=== PATIENT | male | born 1985 | race Hispanic/Latino ===

== ENCOUNTER 2022-07-15 11:40 | Emergency (ER) | payer OTHER | END 2022-07-15 15:08 | disposition home or self-care (01) | LOC: MW.ED 11:40 | DX: K04.7 Periapical abscess without sinus (principal) | CPT/HCPCS: 99282 ==

== ENCOUNTER 2022-12-08 02:19 | Emergency (ER) | payer SELFPAY ==
[2022-12-08] MEDS ORDERED: Penicillin V Potassium 500 MG Tab PO STA (03:04)
== END 2022-12-08 03:11 | disposition home or self-care (01) ==
LOC: MW.ED 02:19
DX: K04.7 Periapical abscess without sinus (principal)
CPT/HCPCS: 99282; A9270; 99283

== ENCOUNTER 2023-05-28 02:42 | Emergency (ER) | payer OTHER ==
[2023-05-28] MEDS ORDERED: Amoxicillin/Clavulanate K 875-125 MG Tab PO ONE (02:58)
== END 2023-05-28 03:37 | disposition home or self-care (01) ==
LOC: MW.ED 02:42
DX: K08.89 Other specified disorders of teeth and supporting structures (principal); R22.0 Localized swelling, mass and lump, head; Z88.0 Allergy status to penicillin
CPT/HCPCS: 99283; A9270

== ENCOUNTER 2024-04-27 23:16 | Emergency (ER) | payer OTHER ==
[2024-04-27] MEDS ORDERED: Naloxone 0.4 MG/ML SDV IVPUSH PRN (23:19)
[2024-04-27] MEDS: HYDROmorphone 1 MG/ML Syringe IVPUSH ONE (23:22)
[2024-04-27] MEDS: Tetracaine HCl/PF 0.5% 4 ML Bottle EYEBOTH ONE (23:25)
[2024-04-28] MEDS: LORazepam 2 MG/ML SDV IVPUSH ONE (00:01)
[2024-04-28] MEDS: HYDROmorphone 1 MG/ML Syringe IVPUSH ONE (00:14)
[2024-04-28] MEDS: Lidocaine 1% 10 ML MDV INJECT ONE (00:17)
[2024-04-28] MEDS: Lidocaine 1% 10 ML MDV ONE (00:18)
[2024-04-28] MEDS: Erythromycin Base 0.5% Ophth Oint 1 GM Tube EYEBOTH STA (03:58)
== END 2024-04-28 04:27 | disposition home or self-care (01) ==
LOC: MW.ED 23:16
DX: S01.81XA Laceration without foreign body of other part of head, initial encounter (principal); T20.00XA Burn of unspecified degree of head, face, and neck, unspecified site, initial encounter; F17.210 Nicotine dependence, cigarettes, uncomplicated; Z88.0 Allergy status to penicillin; X08.8XXA Exposure to other specified smoke, fire and flames, initial encounter
CPT/HCPCS: 12013; 96374; 96375; 96376; 99283; A9270; J1171; J2060; J3490

== ENCOUNTER 2024-05-02 04:13 | Emergency (ER) | payer SELFPAY ==
[2024-05-02] MEDS ORDERED: LORazepam 0.5 MG Tab PO ONE (04:55)
[2024-05-02] MEDS: LORazepam 1 MG Tab PO ONE ×2 (04:55→05:05)
[2024-05-02] MEDS: Erythromycin Base 0.5% Ophth Oint 1 GM Tube EYEBOTH ONE (05:45)
[2024-05-02] MEDS: Bacitracin Oint 1 GM U/D Packet TOP ONE (05:46)
== END 2024-05-02 05:48 | disposition home or self-care (01) ==
LOC: MW.ED 04:13
DX: F43.10 Post-traumatic stress disorder, unspecified (principal); F10.90 Alcohol use, unspecified, uncomplicated; F41.9 Anxiety disorder, unspecified; Z48.02 Encounter for removal of sutures; Z87.828 Personal history of other (healed) physical injury and trauma; Z88.0 Allergy status to penicillin; Z79.899 Other long term (current) drug therapy
CPT/HCPCS: 99283; A9270; 99284

== ENCOUNTER 2024-05-07 18:58 | Emergency (ER) | payer SELFPAY | END 2024-05-07 22:18 | disposition left against medical advice (07) | LOC: MW.ED 18:58 | DX: Z53.21 Procedure and treatment not carried out due to patient leaving prior to being seen by health care provider (principal) ==

== ENCOUNTER 2024-05-13 08:07 | Inpatient (IN) | payer SELFPAY ==
[2024-05-13] MEDS ORDERED: Sodium Chloride 0.9% 10 ML Syringe FLUSH PRN ×2 (08:08→10:56)
[2024-05-13] MEDS ORDERED: Sodium Chloride 0.9% 2.5 ML Syringe FLUSH PRN ×2 (08:08→10:56)
[2024-05-13] MEDS: Sodium Chloride 0.9% 1,000 ML IV STA (08:28)
[2024-05-13 08:31] LABS: BASOPHILS ABSOLUTE AUTO 0.06 K/uL (0.00-0.20); BASOPHILS PERCENT AUTO 0.8 % (0.0-1.0); EOSINOPHILS PERCENT AUTO 1.4 % (0.0-6.0); HEMATOCRIT 41.3 % (42.0-52.0); HEMOGLOBIN 14.6 g/dL (14.0-18.0); IMMATURE GRAN ABSOLUTE AUTO 0.01 K/uL (0.00-0.05); IMMATURE GRAN PERCENT AUTO 0.1 % (0.0-0.4); LYMPHOCYTES ABSOLUTE AUTO 1.13 K/uL (1.00-4.80); LYMPHOCYTES PERCENT AUTO 15.3 % (24.0-44.0); MEAN CORPUSCULAR HGB CONC 35.4 g/dL (32.0-36.0); MEAN CORPUSCULAR VOLUME 90.6 fL (83.0-99.0); MEAN PLATELET VOLUME 9.8 fL (9.4-12.4); MONOCYTES PERCENT AUTO 8.1 % (0.0-8.0); NEUTROPHILS ABSOLUTE AUTO 5.48 K/uL (1.80-7.70); NEUTROPHILS PERCENT AUTO 74.3 % (41.0-71.0); PLATELET COUNT,PLT 111 K/uL (150-400); RED BLOOD CELL COUNT 4.56 M/uL (4.52-5.90); WHITE BLOOD CELL COUNT,WBC 7.38 K/uL (3.9-11.3)
[2024-05-13 09:09] LABS: ALBUMIN 4.1 g/dL (3.4-5.0); CALCIUM 9.6 mg/dL (8.5-10.1); CARBON DIOXIDE,CO2 28.7 mmol/L (21.0-32.0); CREATININE 1.1 mg/dL (0.8-1.3); EST CRCL DRUG DOSING (CG) 100.92 mL/min; MAGNESIUM 1.9 mg/dL (1.8-2.4); POTASSIUM,K 3.4 mmol/L (3.5-5.1); PROTEIN TOTAL,TP 8.1 g/dL (6.4-8.2)
[2024-05-13] MEDS: Potassium Chloride 20 MEQ Tab.ER PO ONE (09:40)
[2024-05-13] MEDS: LORazepam 1 MG Tab PO ONE (10:00)
[2024-05-13] MEDS: Diazepam 2 MG Tab PO ONE (10:00)
[2024-05-13] MEDS ORDERED: Ondansetron 4 MG/2 ML SDV IVPUSH PRN (10:56)
[2024-05-13] MEDS ORDERED: PHENobarbital 32.4 MG Tab PO PRN (11:02)
[2024-05-13] MEDS: PHENobarbitaL sodium 260 MG in Sodium Chloride 0.9% 100 ML IV ONE (11:21)
[2024-05-13] MEDS: Sodium Chloride 0.9% 1,000 ML IV SCH (12:28)
[2024-05-13] MEDS: Pantoprazole 40 MG in Sodium Chloride 0.9% 10 ML IVPUSH ONE (12:28)
[2024-05-13] MEDS: Thiamine 200 MG/2 ML MDV IVPUSH SCH (12:28)
[2024-05-13] MEDS: Nicotine 7 MG/24 Hr Patch TRDERM SCH (12:29)
[2024-05-13] MEDS: Folic Acid 1 MG Tab PO SCH (12:29)
[2024-05-13] MEDS: Buprenorphine/Naloxone 8-2 MG Tab.SL SL SCH (12:29)
[2024-05-13] MEDS: Carboxymethylcellulose Sodium 0.5% Ophth Soln 0.4 ML UD Box of 30 EYEBOTH SCH (13:30)
[2024-05-13] MEDS: PHENobarbital 32.4 MG Tab PO PRN ×2 (15:49→19:47)
[2024-05-13] MEDS: Acetaminophen 325 MG Tab PO PRN (22:55)
[2024-05-14] MEDS: LORazepam 2 MG/ML SDV IVPUSH ONE (05:18)
[2024-05-14 06:02] LABS: BASOPHILS ABSOLUTE AUTO 0.05 K/uL (0.00-0.20); BASOPHILS PERCENT AUTO 0.9 % (0.0-1.0); EOSINOPHILS ABSOLUTE AUTO 0.28 K/uL (0.00-0.45); EOSINOPHILS PERCENT AUTO 5.2 % (0.0-6.0); HEMATOCRIT 40.8 % (42.0-52.0); HEMOGLOBIN 14.2 g/dL (14.0-18.0); IMMATURE GRAN ABSOLUTE AUTO 0.01 K/uL (0.00-0.05); IMMATURE GRAN PERCENT AUTO 0.2 % (0.0-0.4); LYMPHOCYTES ABSOLUTE AUTO 1.14 K/uL (1.00-4.80); LYMPHOCYTES PERCENT AUTO 21.2 % (24.0-44.0); MEAN CORPUSCULAR HEMOGLOBIN 31.9 pg (28.0-32.0); MEAN CORPUSCULAR HGB CONC 34.8 g/dL (32.0-36.0); MEAN CORPUSCULAR VOLUME 91.7 fL (83.0-99.0); MEAN PLATELET VOLUME 10.7 fL (9.4-12.4); MONOCYTES ABSOLUTE AUTO 0.32 K/uL (0.00-0.80); MONOCYTES PERCENT AUTO 5.9 % (0.0-8.0); NEUTROPHILS ABSOLUTE AUTO 3.59 K/uL (1.80-7.70); NEUTROPHILS PERCENT AUTO 66.6 % (41.0-71.0); PLATELET COUNT,PLT 95 K/uL (150-400); RED BLOOD CELL COUNT 4.45 M/uL (4.52-5.90); WHITE BLOOD CELL COUNT,WBC 5.39 K/uL (3.9-11.3)
[2024-05-14 06:26] LABS: ALBUMIN 3.6 g/dL (3.4-5.0); CALCIUM 8.6 mg/dL (8.5-10.1); CARBON DIOXIDE,CO2 28.1 mmol/L (21.0-32.0); CREATININE 0.9 mg/dL (0.8-1.3); EST CRCL DRUG DOSING (CG) 123.35 mL/min; MAGNESIUM 1.7 mg/dL (1.8-2.4); PHOSPHORUS 3.3 mg/dL (2.6-4.7); POTASSIUM,K 3.4 mmol/L (3.5-5.1); PROTEIN TOTAL,TP 7.2 g/dL (6.4-8.2)
[2024-05-14] MEDS: Pantoprazole 40 MG Tab.CR PO SCH (06:40)
[2024-05-14] MEDS ORDERED: LORazepam 2 MG/ML SDV IVPUSH PRN (07:40)
[2024-05-14] MEDS: Multivitamin Tab PO SCH (09:03)
[2024-05-14] MEDS: Potassium Chloride 10 MEQ in Premix Bag 1 BAG IV ONE (09:20)
[2024-05-14] MEDS: Sodium Chloride 0.9% 250 ML IV ONE (09:21)
[2024-05-15 06:07] LABS: BASOPHILS ABSOLUTE AUTO 0.05 K/uL (0.00-0.20); BASOPHILS PERCENT AUTO 0.9 % (0.0-1.0); EOSINOPHILS ABSOLUTE AUTO 0.28 K/uL (0.00-0.45); HEMATOCRIT 43.3 % (42.0-52.0); HEMOGLOBIN 15.2 g/dL (14.0-18.0); IMMATURE GRAN ABSOLUTE AUTO 0.02 K/uL (0.00-0.05); IMMATURE GRAN PERCENT AUTO 0.4 % (0.0-0.4); LYMPHOCYTES ABSOLUTE AUTO 1.11 K/uL (1.00-4.80); LYMPHOCYTES PERCENT AUTO 19.8 % (24.0-44.0); MEAN CORPUSCULAR HEMOGLOBIN 32.3 pg (28.0-32.0); MEAN CORPUSCULAR HGB CONC 35.1 g/dL (32.0-36.0); MEAN CORPUSCULAR VOLUME 91.9 fL (83.0-99.0); MEAN PLATELET VOLUME 10.4 fL (9.4-12.4); MONOCYTES ABSOLUTE AUTO 0.52 K/uL (0.00-0.80); MONOCYTES PERCENT AUTO 9.3 % (0.0-8.0); NEUTROPHILS ABSOLUTE AUTO 3.62 K/uL (1.80-7.70); NEUTROPHILS PERCENT AUTO 64.6 % (41.0-71.0); PLATELET COUNT,PLT 99 K/uL (150-400); RED BLOOD CELL COUNT 4.71 M/uL (4.52-5.90)
[2024-05-15 06:37] LABS: A/G RATIO 1.1 (0.9-1.6); ALBUMIN 3.9 g/dL (3.4-5.0); BILIRUBIN TOTAL 0.6 mg/dL (0.2-1.0); CREATININE 0.9 mg/dL (0.8-1.3); EST CRCL DRUG DOSING (CG) 123.35 mL/min; POTASSIUM,K 4.2 mmol/L (3.5-5.1); PROTEIN TOTAL,TP 7.4 g/dL (6.4-8.2)
[2024-05-15 06:54] LABS: CALCIUM 9.1 mg/dL (8.5-10.1); PHOSPHORUS 4.3 mg/dL (2.6-4.7)
== END 2024-05-15 11:20 | disposition home or self-care (01) | DRG 897 ==
LOC: MW.ED 08:07 → MW.ICU 10:48 → MW.MS 05-14 11:45
PROVIDERS: ADMIT Internal Medicine; ATTEND Internal Medicine
DX: F10.139 Alcohol abuse with withdrawal, unspecified (principal); G40.89 Other seizures; I25.10 Atherosclerotic heart disease of native coronary artery without angina pectoris; I48.91 Unspecified atrial fibrillation; I10 Essential (primary) hypertension; E11.9 Type 2 diabetes mellitus without complications; E66.9 Obesity, unspecified; F17.210 Nicotine dependence, cigarettes, uncomplicated; S00.212A Abrasion of left eyelid and periocular area, initial encounter; S00.211A Abrasion of right eyelid and periocular area, initial encounter; R79.89 Other specified abnormal findings of blood chemistry; E87.6 Hypokalemia; R74.01 Elevation of levels of liver transaminase levels; F12.10 Cannabis abuse, uncomplicated; Z88.0 Allergy status to penicillin; Z79.899 Other long term (current) drug therapy
CPT/HCPCS: 36415; 70450; 70450-26; 71045; 71045-26; 80053; 83735; 84100; 84484; 85025; 93005; 93010; 96360; 99223; 99232; 99238; 99283; 99285-25; A9270-GY; J0574-GY; J2060; J2470; J2560; J3411; J3480; J3490; J7030

== ENCOUNTER 2024-10-25 00:47 | Inpatient (IN) | payer SELFPAY ==
[2024-10-25 01:45] LABS: BASOPHILS ABSOLUTE AUTO 0.13 K/uL (0.00-0.20); BASOPHILS PERCENT AUTO 1.8 % (0.0-1.0); EOSINOPHILS ABSOLUTE AUTO 0.30 K/uL (0.00-0.45); EOSINOPHILS PERCENT AUTO 4.1 % (0.0-6.0); IMMATURE GRAN ABSOLUTE AUTO 0.01 K/uL (0.00-0.05); IMMATURE GRAN PERCENT AUTO 0.1 % (0.0-0.4); LYMPHOCYTES ABSOLUTE AUTO 2.38 K/uL (1.00-4.80); LYMPHOCYTES PERCENT AUTO 32.6 % (24.0-44.0); MEAN PLATELET VOLUME 9.0 fL (9.4-12.4); MONOCYTES ABSOLUTE AUTO 0.70 K/uL (0.00-0.80); MONOCYTES PERCENT AUTO 9.6 % (0.0-8.0); NEUTROPHILS ABSOLUTE AUTO 3.77 K/uL (1.80-7.70); NEUTROPHILS PERCENT AUTO 51.8 % (41.0-71.0); NRBC ABSOLUTE 0.00 K/uL (0.00-0.02); NRBC PERCENT 0.0 /100WBC (0.0-0.2); PLATELET COUNT,PLT 171 K/uL (150-400); RED BLOOD CELL COUNT 5.53 M/uL (4.52-5.90); WHITE BLOOD CELL COUNT,WBC 7.29 K/uL (3.9-11.3)
[2024-10-25 01:58] LABS: INR 1.02 (0.86-1.11)
[2024-10-25 02:16] LABS: A/G RATIO 1.2 (0.9-1.6); ALANINE AMINOTRANSFERASE,ALT 78 IU/L (14-63); ASPARTATE AMNIOTRANSFERASE,AST 83 IU/L (15-37); BILIRUBIN TOTAL 0.5 mg/dL (0.2-1.0); BLOOD UREA NITROGEN,BUN 9 mg/dL (7.0-18.0); CARBON DIOXIDE,CO2 27.2 mmol/L (21.0-32.0); CHLORIDE,CL 102 mmol/L (98-107); CREATININE 1.0 mg/dL (0.8-1.3); EST CRCL DRUG DOSING (CG) 111.01 mL/min; ETHANOL BLOOD MEDICAL 139 mg/dL; GLUCOSE RANDOM 99 mg/dL (74-106); POTASSIUM,K 3.8 mmol/L (3.5-5.1); PROTEIN TOTAL,TP 7.6 g/dL (6.4-8.2); SODIUM,NA 142 mmol/L (136-148); TSH ULTRASENSITIVE 2.53 uIU/mL (0.36-3.74)
[2024-10-25 02:20] LABS: ESTIMATED GFR 99 mL/min (>60)
[2024-10-25 02:24] LABS: APPEARANCE,URINE CLEAR; GLUCOSE,URINE NEGATIVE (NEGATIVE); OCCULT BLOOD,URINE TRACE-INTACT (NEGATIVE)
[2024-10-25 02:32] LABS: EPITHELIAL CELLS,URINE OCCASIONAL (NONE-FEW)
[2024-10-25 02:33] LABS: AMPHETAMINES SCREEN, URINE NEGATIVE (CUTOFF=500); BUPRENORPHINE SCREEN,URINE PRESUMPTIVE POSITIVE (CUTOFF=10); METHADONE SCREEN, URINE NEGATIVE (CUTOFF=200); METHAMPHETAMINES SCREEN, URINE NEGATIVE (CUTOFF=500); OXYCODONE SCREEN,URINE NEGATIVE (CUT0FF=100); PCP SCREEN,URINE NEGATIVE (CUTOFF=25); THC SCREEN,URINE 20 NG/ML NEGATIVE (CUTOFF=50)
[2024-10-25] MEDS: Ondansetron 4 MG/2 ML SDV IVPUSH ONE (03:54)
[2024-10-25] MEDS ORDERED: PHENobarbitaL sodium 260 MG in Sodium Chloride 0.9% 100 ML IV ONE (06:32)
[2024-10-25] MEDS: PHENobarbital Sodium 130 MG/ML SDV IVPUSH PRN ×2 (07:10→12:32)
[2024-10-25] MEDS ORDERED: PHENobarbital Sodium 130 MG/ML SDV IVPUSH ONE (07:12)
[2024-10-25] MEDS: PHENobarbital Sodium 130 MG/ML SDV IVPUSH ONE (08:22)
[2024-10-25] MEDS ORDERED: Sodium Chloride 0.9% 2.5 ML Syringe FLUSH PRN (08:45)
[2024-10-25] MEDS ORDERED: Sodium Chloride 0.9% 10 ML Syringe FLUSH PRN (08:45)
[2024-10-25] MEDS: Buprenorphine/Naloxone 8-2 MG Tab.SL SL SCH (09:09)
[2024-10-25] MEDS: Pantoprazole 40 MG in Sodium Chloride 0.9% 10 ML IVPUSH ONE (09:10)
[2024-10-25] MEDS: Ondansetron 4 MG/2 ML SDV IVPUSH PRN (20:41)
[2024-10-26 05:41] LABS: BASOPHILS ABSOLUTE AUTO 0.09 K/uL (0.00-0.20); BASOPHILS PERCENT AUTO 1.1 % (0.0-1.0); EOSINOPHILS ABSOLUTE AUTO 0.50 K/uL (0.00-0.45); EOSINOPHILS PERCENT AUTO 6.0 % (0.0-6.0); IMMATURE GRAN ABSOLUTE AUTO 0.02 K/uL (0.00-0.05); IMMATURE GRAN PERCENT AUTO 0.2 % (0.0-0.4); LYMPHOCYTES ABSOLUTE AUTO 1.66 K/uL (1.00-4.80); LYMPHOCYTES PERCENT AUTO 19.8 % (24.0-44.0); MEAN PLATELET VOLUME 9.7 fL (9.4-12.4); MONOCYTES ABSOLUTE AUTO 0.57 K/uL (0.00-0.80); MONOCYTES PERCENT AUTO 6.8 % (0.0-8.0); NEUTROPHILS ABSOLUTE AUTO 5.55 K/uL (1.80-7.70); NEUTROPHILS PERCENT AUTO 66.1 % (41.0-71.0); NRBC ABSOLUTE 0.00 K/uL (0.00-0.02); NRBC PERCENT 0.0 /100WBC (0.0-0.2); PLATELET COUNT,PLT 158 K/uL (150-400); RED BLOOD CELL COUNT 5.84 M/uL (4.52-5.90); WHITE BLOOD CELL COUNT,WBC 8.39 K/uL (3.9-11.3)
[2024-10-26 05:59] LABS: BLOOD UREA NITROGEN,BUN 10.0 mg/dL (7.0-18.0); CARBON DIOXIDE,CO2 29.8 mmol/L (21.0-32.0); CHLORIDE,CL 98.0 mmol/L (98-107); CREATININE 1.0 mg/dL (0.8-1.3); EST CRCL DRUG DOSING (CG) 111.01 mL/min; GLUCOSE RANDOM 89.0 mg/dL (74-106); POTASSIUM,K 4.1 mmol/L (3.5-5.1); SODIUM,NA 137.0 mmol/L (136-148)
[2024-10-26 06:11] LABS: ESTIMATED GFR 99.0 mL/min (>60)
[2024-10-27 05:24] LABS: BASOPHILS ABSOLUTE AUTO 0.07 K/uL (0.00-0.20); BASOPHILS PERCENT AUTO 0.9 % (0.0-1.0); EOSINOPHILS ABSOLUTE AUTO 0.45 K/uL (0.00-0.45); EOSINOPHILS PERCENT AUTO 6.0 % (0.0-6.0); IMMATURE GRAN ABSOLUTE AUTO 0.02 K/uL (0.00-0.05); IMMATURE GRAN PERCENT AUTO 0.3 % (0.0-0.4); LYMPHOCYTES ABSOLUTE AUTO 1.47 K/uL (1.00-4.80); LYMPHOCYTES PERCENT AUTO 19.5 % (24.0-44.0); MEAN PLATELET VOLUME 9.9 fL (9.4-12.4); MONOCYTES ABSOLUTE AUTO 0.57 K/uL (0.00-0.80); MONOCYTES PERCENT AUTO 7.6 % (0.0-8.0); NEUTROPHILS ABSOLUTE AUTO 4.95 K/uL (1.80-7.70); NEUTROPHILS PERCENT AUTO 65.7 % (41.0-71.0); NRBC ABSOLUTE 0.00 K/uL (0.00-0.02); NRBC PERCENT 0.0 /100WBC (0.0-0.2); PLATELET COUNT,PLT 151 K/uL (150-400); RED BLOOD CELL COUNT 5.59 M/uL (4.52-5.90); WHITE BLOOD CELL COUNT,WBC 7.53 K/uL (3.9-11.3)
[2024-10-27 05:51] LABS: BLOOD UREA NITROGEN,BUN 13.0 mg/dL (7.0-18.0); CARBON DIOXIDE,CO2 28.9 mmol/L (21.0-32.0); CHLORIDE,CL 100.0 mmol/L (98-107); CREATININE 1.1 mg/dL (0.8-1.3); EST CRCL DRUG DOSING (CG) 100.92 mL/min; GLUCOSE RANDOM 93.0 mg/dL (74-106); POTASSIUM,K 4.2 mmol/L (3.5-5.1); SODIUM,NA 137.0 mmol/L (136-148)
[2024-10-27 06:06] LABS: ESTIMATED GFR 89.0 mL/min (>60)
[2024-10-28 05:37] LABS: BASOPHILS ABSOLUTE AUTO 0.08 K/uL (0.00-0.20); BASOPHILS PERCENT AUTO 0.9 % (0.0-1.0); EOSINOPHILS ABSOLUTE AUTO 0.46 K/uL (0.00-0.45); EOSINOPHILS PERCENT AUTO 5.4 % (0.0-6.0); IMMATURE GRAN ABSOLUTE AUTO 0.02 K/uL (0.00-0.05); IMMATURE GRAN PERCENT AUTO 0.2 % (0.0-0.4); LYMPHOCYTES ABSOLUTE AUTO 1.81 K/uL (1.00-4.80); LYMPHOCYTES PERCENT AUTO 21.3 % (24.0-44.0); MEAN PLATELET VOLUME 10.6 fL (9.4-12.4); MONOCYTES ABSOLUTE AUTO 0.91 K/uL (0.00-0.80); MONOCYTES PERCENT AUTO 10.7 % (0.0-8.0); NEUTROPHILS ABSOLUTE AUTO 5.20 K/uL (1.80-7.70); NEUTROPHILS PERCENT AUTO 61.5 % (41.0-71.0); NRBC ABSOLUTE 0.00 K/uL (0.00-0.02); NRBC PERCENT 0.0 /100WBC (0.0-0.2); PLATELET COUNT,PLT 147 K/uL (150-400); RED BLOOD CELL COUNT 5.67 M/uL (4.52-5.90); WHITE BLOOD CELL COUNT,WBC 8.48 K/uL (3.9-11.3)
[2024-10-28 06:09] LABS: A/G RATIO 1.1 (0.9-1.6); ALANINE AMINOTRANSFERASE,ALT 93.0 IU/L (14-63); ASPARTATE AMNIOTRANSFERASE,AST 68.0 IU/L (15-37); BILIRUBIN TOTAL 0.4 mg/dL (0.2-1.0); BLOOD UREA NITROGEN,BUN 17.0 mg/dL (7.0-18.0); CARBON DIOXIDE,CO2 27.8 mmol/L (21.0-32.0); CHLORIDE,CL 98.0 mmol/L (98-107); CREATININE 1.1 mg/dL (0.8-1.3); EST CRCL DRUG DOSING (CG) 100.92 mL/min; GLUCOSE RANDOM 81.0 mg/dL (74-106); POTASSIUM,K 4.1 mmol/L (3.5-5.1); PROTEIN TOTAL,TP 7.4 g/dL (6.4-8.2); SODIUM,NA 135.0 mmol/L (136-148)
[2024-10-28 06:18] LABS: ESTIMATED GFR 89.0 mL/min (>60)
== END 2024-10-28 11:02 | disposition home or self-care (01) | DRG 897 ==
LOC: MW.ED 00:47 → MW.ICU 08:17 → OBSVTOIN 08:17 → MW.MS 10-27 12:50
PROVIDERS: ADMIT Family Medicine; ATTEND Family Medicine
PROC: HZ2ZZZZ Detoxification Services for Substance Abuse Treatment (ICD-10-PCS; principal; 2024-10-25)
DX: F10.139 Alcohol abuse with withdrawal, unspecified (principal); F12.10 Cannabis abuse, uncomplicated; E86.0 Dehydration; R74.8 Abnormal levels of other serum enzymes; F41.9 Anxiety disorder, unspecified; Z88.0 Allergy status to penicillin; Z79.899 Other long term (current) drug therapy; Z72.0 Tobacco use
CPT/HCPCS: 36415; 80048; 80053; 80143; 80179; 80305; 80307; 81001; 83735; 84443; 85025; 85610; 93005; 93010; 96361; 96374; 96375; 96376; 99285; 99285-25; A9270-GY; J0574-GY; J2405; J2470; J2560; J3360; J7030